=== PATIENT | female | born 1940 | race Caucasian/White ===

== ENCOUNTER 2024-02-05 17:30 | Emergency (ER) | payer MEDICARE ==
[2024-02-05 17:44] VITALS: TEMP 98.4
[2024-02-05 18:01] LABS: Basophils % (A) 0 %; Eosinophils # (A) 0.1 k/uL (0-0.7); Eosinophils % (A) 1 %; HCT 37.2 % (34.0-46.0); HGB 12.1 gm/dL (11.4-16.0); Lymphocytes # (A) 1.5 k/uL (1.0-4.8); Lymphocytes % (A) 16 %; MCH 32.1 pg (25.0-35.0); MCHC 32.6 g/dL (31.0-37.0); MCV 98.3 fL (80.0-100.0); Mean Platelet Volume 6.9; Monocytes # (A) 0.5 k/uL (0-1.0); Monocytes % (A) 5 %; Neutrophils # (A) 7.3 k/uL (1.3-7.7); Neutrophils % (A) 76 %; Platelet Count 353 k/uL (150-450); RBC 3.78 m/uL (3.80-5.40); RDW 13.5 % (11.5-15.5); WBC 9.6 k/uL (3.8-10.6)
[2024-02-05 18:13] LABS: ALT 16 U/L (4-34); AST 20 U/L (14-36); African American GFR (CKD) 57 (>60 ml/min/1.73 sqM); Alkaline Phosphatase 89 U/L (38-126); Anion Gap 9 mmol/L; Blood Urea Nitrogen 34 mg/dL (7-17); Calcium 9.9 mg/dL (8.4-10.2); Carbon Dioxide 20 mmol/L (22-30); Chloride 103 mmol/L (98-107); Glucose 133 mg/dL (74-99); Magnesium 1.5 mg/dL (1.6-2.3); Non-African American GFR(CKD) 49 (>60 ml/min/1.73 sqM); Potassium 4.2 mmol/L (3.5-5.1); Sodium 132 mmol/L (137-145); Total Bilirubin 0.8 mg/dL (0.2-1.3); Total Protein 6.2 g/dL (6.3-8.2)
--- NOTE | 2024-02-05 18:15 | XR ---
EXAMINATION TYPE: XR chest 2V DATE OF EXAM: 02/05/2024 COMPARISON: None INDICATION: Chest pain TECHNIQUE: Frontal and lateral views of the chest are obtained. FINDINGS: The heart size is normal. The pulmonary vasculature is normal. There is a mild infiltrate through the right upper lung field. Some streak opacities on the left. Inf iltrate or atelectasis may be present. Consider atypical pneumonia.. IMPRESSION: 1. Bilateral lung infiltrates in the bilateral mid and left upper lung field. Consider atypical pneum onia.
[2024-02-05 18:25] LABS: INR 0.9 (<1.2); Prothrombin Time 10.2 sec (10.0-12.5)
[2024-02-05 18:26] LABS: Partial Thromboplastin Time 18.7 sec (22.0-30.0)
--- NOTE | 2024-02-05 19:19 | ED ---
General Adult HPI - General Chief complaint: Chest Pain Stated complaint: Chest pain Time Seen by Provider: 02/05/24 17:32 Source: patient, EMS, RN notes reviewed, old records reviewed Mode of arrival: EMS Limitations: no limitations - History of Present Illness Initial comments: 83-year-old female presenting with 24 hours of chest discomfort. Patient was given aspirin and nitroglycerin by paramedics and did have a drop in blood pressure. She has no pain at the time my evaluation and blood pressure has improved. No associated dyspnea. No nausea or vomiting. She states she has anxiety and currently lives alone and she states she has had several episodes similar to this in the past which were related to anxiety. - Related Data Allergies Allergy/AdvReac Type Severity Reaction Status Date / Time Penicillins Allergy Anaphylaxis Verified 02/05/24 17:43 diazepam [From Valium] AdvReac Hallucinati Verified 02/05/24 17:43 ons Review of Systems ROS Statement: Those systems with pertinent positive or pertinent negative responses have been documented in the HPI. ROS Other: All systems not noted in ROS Statement are negative. 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 History of Any Multi-Drug Resistant Organisms: None Reported Past Surgical History: Appendectomy, Breast Surgery, Hysterectomy, Orthopedic Surgery, Tonsillectomy Additional Past Surgical History / Comment(s): 2 artifical hips, 2 back surgeries- bulging disc Past Psychological History: No Psychological Hx Reported Smoking Status: Former smoker Past Alcohol Use History: Occasional Past Drug Use History: None Reported General Exam Limitations: no limitations General appearance: alert, in no apparent distress Head exam: Present: atraumatic, normocephalic Eye exam: Present: normal appearance, PERRL Neck exam: Present: normal inspection Respiratory exam: Present: normal lung sounds bilaterally. Absent: respiratory distress, wheezes Cardiovascular Exam: Present: regular rate, normal rhythm GI/Abdominal exam: Present: soft. Absent: distended, tenderness Extremities exam: Present: normal inspection, normal capillary refill. Absent: pedal edema Neurological exam: Present: alert, oriented X3 Psychiatric exam: Present: anxious Skin exam: Present: warm, dry, intact. Absent: cyanosis, diaphoretic Course Vital Signs 02/05/24 02/05/24 02/05/24 17:35 17:47 19:02 Temperature 98.4 F Pulse Rate 95 105 H 80 Respiratory 20 16 20 Rate Blood Pressure 142/65 142/65 135/61 O2 Sat by Pulse 97 97 97 Oximetry 02/05/24 19:57 Temperature Pulse Rate 86 Respiratory 18 Rate Blood Pressure 125/75 O2 Sat by Pulse 98 Oximetry Medical Decision Making - Medical Decision Making Was pt. sent in by a medical professional or institution ([facility]ILL[facility] Stafford, [employer] DEC[employer]ATING [employer]ACHINE OPERATOR, urgent care, hospital, or half-way...) When possible be specific @ -No Did you speak to anyone other than the patient for history (EMS, parent, family, police, friend...)? What history was obtained from this source @ -No Did you review nursing and triage notes (agree or disagree)? Why? @ -I reviewed and agree with nursing and triage notes Were old charts reviewed (outside hosp., previous admission, EMS record, old EKG, old radiological studies, urgent care reports/EKG's, half-way records)? Report findings @ -No old charts were reviewed Differential Chest Pain: Stable Angina, Unstable Angina, STEMI, NSTEMI Aortic Dissection, Pneumothorax, Musculoskeletal, Esophageal Spasm GERD, Cholecystitis, Pancreatitis, Zoster, this is not meant to be an all-inclusive list. EKG interpreted by me (3pts min.). @ -[Sinus rhythm rate of 90, [place] interval 154, QRS duration 82, QTc [address] segment elevation X-rays interpreted by me (1pt min.). @ -Chest x-ray shows bilateral upper lung field infiltrate consider atypical pneumonia. Patient has no cough, no fever, no dyspnea. No old for comparison. CT interpreted by me (1pt min.). @ -None done U/S interpreted by me (1pt. min.). @ -None done What testing was considered but not performed or refused? (CT, X-rays, U/S, labs)? Why? @ -None What meds were considered but not given or refused? Why? @ -None Did you discuss the management of the patient with other professionals (professionals i.e. CASTILLO Stafford, [employer] DEC[employer]ATING [employer]ACHINE OPERATOR, lab, RT, psych nurse, social organization professor, hospitality ambassador, teacher, appeals officer, human services case manager)? Give summary @ -No Was smoking cessation discussed for >3mins.? @ -No Was critical care preformed (if so, how long)? @ -No Were there social determinants of health that impacted care today? How? (Homelessness, low income, unemployed, alcoholism, drug addiction, transportation, low edu. Level, literacy, decrease access to med. care, residential, rehab)? @ -No Was there de-escalation of care discussed even if they declined (Discuss DNR or withdrawal of care, Hospice)? DNR status @ -No What co-morbidities impacted this encounter? (DM, HTN, Smoking, COPD, CAD, Cancer, CVA, ARF, Chemo, Hep., AIDS, mental health diagnosis, sleep apnea, morbid obesity)? @ -None Was patient admitted / discharged? Hospital course, mention meds given and route, prescriptions, significant lab abnormalities, going to OR and other pertinent info. @ -83-year-old female with chest discomfort over the past 24 hours. No associated symptoms. Patient's pain is absent during my initial evaluation and throughout her stay in the emergency department. She has a EKG which shows sinus rhythm without ST segment changes. Normal CBC, normal CMP, negative initial troponin. We discussed admission for repeat cardiac enzymes telemetry and cardiology consultation. Patient prefers discharge but is agreeable to second troponin. Second troponin is obtained and is again negative. Patient states she will return with any worsening or changing symptoms. Undiagnosed new problem with uncertain prognosis? @ -No Drug Therapy requiring intensive monitoring for toxicity (Heparin, Nitro, Insulin, Cardizem)? @ -No Were any procedures done? @ -No Diagnosis/symptom? @ -[Chest pain Acute, or Chronic, or Acute on Chronic? @ -Acute Uncomplicated (without systemic symptoms) or Complicated (systemic symptoms)? @ -[default Side effects of treatment? @ -No Exacerbation, Progression, or Severe Exacerbation? @ -No Poses a threat to life or bodily function? How? (Chest pain, [place], PR, pneumonia, PE, COPD, DKA, ARF, appy, cholecystitis, CVA, Diverticulitis, Homicidal, Suicidal, threat to staff... and all critical care pts) @ -No - Lab Data Result diagrams: 02/05/24 17:46 02/05/24 17:46 Lab Results 02/05/24 02/05/24 02/05/24 Range/Units 17:46 17:46 17:46 WBC 9.6 (3.8-10.6) k/uL RBC 3.78 L (3.80-5.40) m/uL Hgb 12.1 (11.4-16.0) gm/dL Hct 37.2 (34.0-46.0) % MCV 98.3 (80.0-100.0) fL MCH 32.1 (25.0-35.0) pg MCHC 32.6 (31.0-37.0) g/dL RDW 13.5 (11.5-15.5) % Plt Count 353 (150-450) k/uL MPV 6.9 Neutrophils % 76 % Lymphocytes % 16 % Monocytes % 5 % Eosinophils % 1 % Basophils % 0 % Neutrophils # 7.3 (1.3-7.7) k/uL Lymphocytes # 1.5 (1.0-4.8) k/uL Monocytes # 0.5 (0-1.0) k/uL Eosinophils # 0.1 (0-0.7) k/uL Basophils # 0.0 (0-0.2) k/uL PT 10.2 (10.0-12.5) sec INR 0.9 (<1.2) APTT 18.7 L (22.0-30.0) sec Sodium 132 L (137-145) mmol/L Potassium 4.2 (3.5-5.1) mmol/L Chloride 103 (98-107) mmol/L Carbon Dioxide 20 L (22-30) mmol/L Anion Gap 9 mmol/L BUN 34 H (7-17) mg/dL Creatinine 1.07 H (0.52-1.04) mg/dL Est GFR (CKD-EPI)AfAm 57 (>60 ml/min/1.73 sqM) Est GFR (CKD-EPI)NonAf 49 (>60 ml/min/1.73 sqM) Glucose 133 H (74-99) mg/dL Calcium 9.9 (8.4-10.2) mg/dL Magnesium 1.5 L (1.6-2.3) mg/dL Total Bilirubin 0.8 (0.2-1.3) mg/dL AST 20 (14-36) U/L ALT 16 (4-34) U/L Alkaline Phosphatase 89 (38-126) U/L Troponin I (0.000-0.034) ng/mL Total Protein 6.2 L (6.3-8.2) g/dL Albumin 4.0 (3.5-5.0) g/dL 02/05/24 02/05/24 Range/Units 17:46 20:30 WBC (3.8-10.6) k/uL RBC (3.80-5.40) m/uL Hgb (11.4-16.0) gm/dL Hct (34.0-46.0) % MCV (80.0-100.0) fL MCH (25.0-35.0) pg MCHC (31.0-37.0) g/dL RDW (11.5-15.5) % Plt Count (150-450) k/uL MPV Neutrophils % % Lymphocytes % % Monocytes % % Eosinophils % % Basophils % % Neutrophils # (1.3-7.7) k/uL Lymphocytes # (1.0-4.8) k/uL Monocytes # (0-1.0) k/uL Eosinophils # (0-0.7) k/uL Basophils # (0-0.2) k/uL PT (10.0-12.5) sec INR (<1.2) APTT (22.0-30.0) sec Sodium (137-145) mmol/L Potassium (3.5-5.1) mmol/L Chloride (98-107) mmol/L Carbon Dioxide (22-30) mmol/L Anion Gap mmol/L BUN (7-17) mg/dL Creatinine (0.52-1.04) mg/dL Est GFR (CKD-EPI)AfAm (>60 ml/min/1.73 sqM) Est GFR (CKD-EPI)NonAf (>60 ml/min/1.73 sqM) Glucose (74-99) mg/dL Calcium (8.4-10.2) mg/dL Magnesium (1.6-2.3) mg/dL Total Bilirubin (0.2-1.3) mg/dL AST (14-36) U/L ALT (4-34) U/L Alkaline Phosphatase (38-126) U/L Troponin I <0.012 <0.012 (0.000-0.034) ng/mL Total Protein (6.3-8.2) g/dL Albumin (3.5-5.0) g/dL Disposition Clinical Impression: Chest pain Disposition: HOME SELF-CARE Condition: Fair Instructions (If sedation given, give patient instructions): Chest Pain (ED) Additional Instructions: If pain returns please return to the emergency department. If you develop cough or fever please either follow-up with your primary care provider or return to the emergency department. Is patient prescribed a controlled substance at d/c from ED?: No Referrals: Lizandro Murray Jr, [Primary Care Provider] - 1-2 days Time of Disposition: 21:36
[2024-02-05] MEDS: MAGNESIUM SULFATE-D5W PMX 1 GM in DEXTROSE/WATER 1 100ML.BAG IVPB ONE (19:53)
[2024-02-05 19:58] VITALS: RESP 18
[2024-02-05 22:07] VITALS: BP 140/75; PULSE 80
== END 2024-02-05 22:20 | disposition home or self-care (01) ==
LOC: EC 17:30
DX: R07.9 Chest pain, unspecified
CPT/HCPCS: 36415; 71046; 80053; 83735; 84484; 85025; 85610; 85730; 93005; 96365; 96366; 99285